=== PATIENT | female | born 1995 | race Caucasian/White ===

== ENCOUNTER 2018-08-04 15:18 | Emergency (ER) | payer OTHER ==
[~2018-08-04] VITALS: Ht 160 cm; Wt 55.8 kg
[2018-08-04 15:24] VITALS: BP 104/69
--- NOTE | 2018-08-04 15:44 | NUR ---
PT AMBULATED TO ER BED 12
--- NOTE | 2018-08-04 16:00 | NUR ---
C/O N/V/D X 3 DAYS. PT STATES UNABLE TO KEEP ANYTHING DOWN. . SKIN IS PINK/WARM/DRY; AAOX4 WITH EVEN AND STEADY GAIT; LUNGS CLEAR BL; HR EVEN AND REGULAR; PT DENIES ANY FEVER, CP, SOB, OR COUGH AT THIS TIME; VSS; PATIENT POSITIONED FOR COMFORT; HOB ELEVATED; BEDRAILS UP X2; BED DOWN. ER MD MADE AWARE OF PT STATUS.
[2018-08-04] MEDS ORDERED: NACL 0.9% 1,000 ML IV ONE (16:54)
[2018-08-04] MEDS ORDERED: NACL 0.9% 1,000 ML IV SCH (16:54)
[2018-08-04] MEDS ORDERED: METOCLOPRAMIDE 10 MG/2 ML INJ VIAL IVP ONE (16:55)
[2018-08-04] MEDS ORDERED: PROMETHAZINE 25 MG/ML VIAL IM ONE (16:55)
[2018-08-04] MEDS ORDERED: FAMOTIDINE 20 MG/2 ML VIAL IVP ONE (16:55)
[2018-08-04] MEDS ORDERED: diphenhydrAMINE 50 MG/ML VIAL IVP ONE (17:30)
[2018-08-04 17:35] LABS: BASOPHILS % (AUTO) 0.3 % (0.0-2.0); HEMOGLOBIN 14.8 g/dL (12.0-16.0); LYMPHOCYTES # (AUTO) 0.9 K/uL (2.5-16.5); MEAN CORPUSCULAR HEMOGLOBIN 32 pg (27-31); MEAN CORPUSCULAR HGB CONC 34 g/dL (33-37); MEAN CORPUSCULAR VOLUME 94.2 fL (80-94); MONOCYTES # (AUTO) 0.3 K/uL (0.8-1.0); MONOCYTES % (AUTO) 2.9 % (1.7-9.3); NEUTROPHILS # (AUTO) 8.7 K/uL (1.8-7.7); NEUTROPHILS % (AUTO) 87.8 % (42.2-75.2); PLATELET COUNT (AUTO) 288 K/uL (140-450); RED BLOOD CELL COUNT(AUTO) 4.67 MIL/uL (4.20-5.40); WHITE BLOOD COUNT (AUTO) 9.9 K/uL (4.8-10.8)
[2018-08-04 17:40] LABS: ANION GAP 15.8 (8-16); CREATININE 0.9 mg/dL (0.6-1.3); POTASSIUM 3.8 mmol/L (3.5-5.1)
[2018-08-04 17:52] LABS: ALBUMIN 4.5 g/dL (3.4-5.0); TOTAL BILIRUBIN 0.5 mg/dL (0.0-1.0)
[2018-08-04 18:09] LABS: MAGNESIUM 2.5 mg/dL (1.8-2.4)
--- NOTE | 2018-08-04 18:10 | NUR ---
PT SLEEPING IN BED, PT STATED SHE FEELS FINE.
[2018-08-04 18:36] LABS: ACETONE, SERUM NEGATIVE (NEGATIVE)
--- NOTE | 2018-08-04 19:08 | NUR ---
REPORT GIVEN TO DELONTE NAM AND FABIOLA NAM .
--- NOTE | 2018-08-04 20:03 | NUR ---
Patient discharged with v/s stable. Written and verbal after care instructions given and explained. Patient alert, oriented and verbalized understanding of instructions. Ambulatory with steady gait. All questions addressed prior to discharge. ID band removed. Patient advised to follow up with PMD. Rx of PROMETHAZINE AND PEPCID given. Patient educated on indication of medication including possible reaction and side effects. Opportunity to ask questions provided and answered.
[2018-08-04 20:04] VITALS: BP 109/61
== END 2018-08-04 20:04 | disposition home or self-care (01) ==
LOC: MED 15:18
DX: R11.2 Nausea with vomiting, unspecified (principal); F48.9 Nonpsychotic mental disorder, unspecified; R19.7 Diarrhea, unspecified; Z88.8 Allergy status to other drugs, medicaments and biological substances
CPT/HCPCS: 36415; 80053; 81002; 81025; 82009; 82150; 83690; 83735; 84703; 85025; 96361; 96372; 96374; 96375; 99283; J1200; J2550; J2765; J3490; J7030

== ENCOUNTER 2021-11-20 20:55 | Emergency (ER) | payer OTHER ==
[~2021-11-20] VITALS: Ht 162.6 cm; Wt 61.2 kg
[2021-11-20 21:09] VITALS: BP 103/68
--- NOTE | 2021-11-20 22:06 | NUR ---
NOTIFIED BY DR. SOTELO THAT PT DID NOT ANSWER IN LOBBY OR OUTSIDE. PATIENT LEFT WITHOUT BEING SEEN BY DR. SOTELO. NO FURTHER CARE PROVIDED FOR PATIENT.
== END 2021-11-20 22:06 | disposition left against medical advice (07) ==
LOC: MED 20:55
DX: K59.00 Constipation, unspecified (principal); Z53.21 Procedure and treatment not carried out due to patient leaving prior to being seen by health care provider

== ENCOUNTER 2021-12-08 17:27 | Emergency (ER) | payer OTHER ==
[~2021-12-08] VITALS: Ht 160 cm; Wt 58.1 kg
[2021-12-08 17:31] VITALS: BP 127/64
--- NOTE | 2021-12-08 17:38 | NUR ---
DR NIX AT BEDSIDE
[2021-12-08] MEDS ORDERED: NACL 0.9% 1,000 ML IV SCH (17:45)
[2021-12-08] MEDS ORDERED: KETOROLAC 30 MG/ML VIAL IVP ONE (17:45)
[2021-12-08] MEDS ORDERED: diphenhydrAMINE 50 MG/ML VIAL IVP ONE (17:45)
[2021-12-08] MEDS ORDERED: METOCLOPRAMIDE 10 MG/2 ML INJ VIAL IVP ONE (17:45)
[2021-12-08 17:54] LABS: BASOPHILS % (AUTO) 0.1 % (0.0-2.0); EOSINOPHILS % (AUTO) 0.1 % (0.0-4.0); HEMATOCRIT 43.5 % (36-48); HEMOGLOBIN 14.4 g/dL (12.0-16.0); LYMPHOCYTES # (AUTO) 1.1 K/uL (2.5-16.5); LYMPHOCYTES % (AUTO) 8.4 % (20.5-51.1); MEAN CORPUSCULAR HEMOGLOBIN 31 pg (27-31); MEAN CORPUSCULAR HGB CONC 33 g/dL (33-37); MEAN CORPUSCULAR VOLUME 94.8 fL (80-94); MONOCYTES # (AUTO) 0.2 K/uL (0.8-1.0); MONOCYTES % (AUTO) 1.9 % (1.7-9.3); NEUTROPHILS # (AUTO) 11.1 K/uL (1.8-7.7); NEUTROPHILS % (AUTO) 89.5 % (42.2-75.2); PLATELET COUNT (AUTO) 260 K/uL (140-450); RED BLOOD CELL COUNT(AUTO) 4.58 MIL/uL (4.20-5.40); RED CELL DISTRIBUTION WIDTH 13.7 % (11.6-13.7); WHITE BLOOD COUNT (AUTO) 12.5 K/uL (4.8-10.8)
--- NOTE | 2021-12-08 18:00 | NUR ---
26 Y/O F BIBS W C/O OF N/V/D X 3DAYS WITH INABILITY TO PRODUCE URINE AND ABD PAIN. PT DENIES FEVER; AAOX4 WITH EVEN AND STEADY GAIT ALLERGY: ZOFRAN (CAUSES DIZZINESS) PMH: HX PANCREATITIS
[2021-12-08 18:22] LABS: ALBUMIN 4.1 g/dL (3.4-5.0); ANION GAP 14.4 (8-16); CARBON DIOXIDE 25.9 mmol/L (21-32); CREATININE 0.9 mg/dL (0.6-1.3); POTASSIUM 3.3 mmol/L (3.5-5.1); TOTAL BILIRUBIN 0.6 mg/dL (0.0-1.0)
[2021-12-08] MEDS ORDERED: PROM25TA27 PO (18:33)
[2021-12-08] MEDS ORDERED: IBUP-2213 PO (18:33)
[2021-12-08 19:50] VITALS: BP 97/35
--- NOTE | 2021-12-08 19:50 | NUR ---
Patient discharged with v/s stable. Written and verbal after care instructions given and explained. Patient alert, oriented and verbalized understanding of instructions. Carried with steady gait. All questions addressed prior to discharge. ID band removed. Patient advised to follow up with PMD. Rx of IBUPROFEN AND PROMETHAZINE given. Opportunity to ask questions provided and answered.
== END 2021-12-08 19:50 | disposition home or self-care (01) ==
LOC: MED 17:27
DX: R10.13 Epigastric pain (principal); R11.2 Nausea with vomiting, unspecified; F12.90 Cannabis use, unspecified, uncomplicated
CPT/HCPCS: 36415; 80053; 83690; 85025; 96361; 96374; 96375; 99284; J1200; J1885; J2765; J7030